=== PATIENT | male | born 1975 | race American Indian/Alaskan Native ===

== ENCOUNTER 2017-01-13 10:59 | Emergency (ER) | payer SELFPAY ==
[2017-01-13 11:05] VITALS: BP 168/105
--- NOTE | 2017-01-13 12:53 | Emergency Department Report ---
Minor Respiratory - HPI Chief Complaint: Upper Respiratory Infection Stated Complaint: FLU LIKE S/S Time Seen by Provider: 01/13/17 12:44 Duration: 4 Days Pain Location: Nose Severity: moderate Minor Respiratory: Yes Rhinorrhea, Yes Able to Tolerate Fluids, Yes Cough, Yes Sick Contacts, No Sore Throat, No Ear Pain, No Hemoptysis, No Chest Pain, No Shortness of Breath, No Fever (+chills) Other History: Pt reports cough, congestion, chills x 4 days. States feeling a little bit better today. Needs work note. ED Review of Systems ROS: Stated complaint: FLU LIKE S/S Other details as noted in HPI Comment: All other systems reviewed and negative Constitutional: chills. denies: fever Eyes: denies: eye pain, eye discharge, vision change ENT: congestion. denies: ear pain, throat pain Respiratory: cough. denies: shortness of breath, wheezing Cardiovascular: denies: chest pain, palpitations Endocrine: no symptoms reported Gastrointestinal: denies: abdominal pain, nausea, diarrhea Genitourinary: denies: urgency, dysuria Musculoskeletal: denies: back pain, joint swelling, arthralgia Skin: denies: rash, lesions Neurological: denies: headache, weakness, paresthesias Psychiatric: denies: anxiety, depression Hematological/Lymphatic: denies: easy bleeding, easy bruising ED Past Medical Hx - Past Medical History Hx Hypertension: Yes Hx Diabetes: Yes - Surgical History Past Surgical History?: No - Social History Smoking Status: Never Smoker Substance Use Type: None - Medications Home Medications: Home Medications Medication Instructions Recorded Confirmed Last Taken Type Azithromycin [Zithromax] 250 mg PO DAILY #6 tablet 01/13/17 Unknown Rx Minor Respiratory Exam - Exam General: Vital signs noted. No distress. Alert and acting appropriately. HEENT: Yes Moist Mucous Membranes, No Pharyngeal Erythema, No Pharyngeal Exudates, No Rhinorrhea, No Conjuctival Injection, No Frontal Tenderness, No Maxillary Tenderness Ear: Neither TM Bulge, Neither TM Erythema, Neither EAC Pain, Neither EAC Discharge Neck: Yes Supple, No Adenopathy Lungs: Yes Good Air Exchange, No Wheezes, No Ronchi, No Stridor, No Cough, No Labored Respirations, No Retractions, No Use of Accessory Muscles, No Other Abnormal Lung Sounds Heart: Yes Regular, No Murmur Abdomen: Yes Normal Bowel Sounds, No Tenderness, No Peritoneal Signs Skin: No Rash, No Edema Neurologic: Alert and oriented, no deficits. Musculoskeletal: Unremarkable. ED Course Vital Signs 01/13/17 11:03 Temperature 98.1 F Pulse Rate 80 Respiratory 20 Rate Blood Pressure 168/105 O2 Sat by Pulse 98 Oximetry - Reevaluation(s) Reevaluation #1: 01/13/17 12:50 Pt is in NAD and stable for d/c. ED Medical Decision Making - Medical Decision Making Pt with flu like sx, afebrile. Will give RX for abx if not better in 3 days. Follow with PCP for HTN. - Differential Diagnosis URI, influenza, PNA Critical care attestation.: If time is entered above; I have spent that time in minutes in the direct care of this critically ill patient, excluding procedure time. ED Disposition Clinical Impression: Elevated blood pressure reading URI (upper respiratory infection) Qualifiers: URI type: unspecified URI Qualified Code(s): J06.9 - Acute upper respiratory infection, unspecified Disposition: - TO HOME OR SELFCARE Is pt being admited?: No Condition: Good Instructions: Upper Respiratory Infection (ED) Prescriptions: Azithromycin [Zithromax] 250 mg PO DAILY #6 tablet Referrals: PRIMARY CARE, [Primary Care Provider] - 3-5 Days Forms: Work/School Release Form(ED) Time of Disposition: 12:52
== END 2017-01-13 14:43 | disposition home or self-care (01) ==
LOC: ED 10:59
DX: J06.9 Acute upper respiratory infection, unspecified (principal); I10 Essential (primary) hypertension; E11.9 Type 2 diabetes mellitus without complications
CPT/HCPCS: 99282

== ENCOUNTER 2017-02-21 14:00 | Emergency (ER) | payer OTHER ==
--- NOTE | 2017-02-21 19:09 | Emergency Department Report ---
ED Recheck HPI - General Chief Complaint: Recheck/Abnormal Lab/Rx Stated Complaint: MEDICATION REFILL Time Seen by Provider: 02/21/17 18:57 Source: patient Mode of arrival: Ambulatory Limitations: No Limitations - History of Present Illness Initial Comments: This is a 41 y.o. male requesting refill of high blood pressure medicine. He use [facility] for primary care and they are closed until February 28. He took is last pill today at 1600. He has an appointment on March 13. Patient states he was taking another medication as well to better control blood pressure. Medication was discontinued because he believe it caused nightmares. He doesn't recall the name of medication. He is currently taking metoprolol 50 mg po BID. Denies chest pain, SOB, headache, pedal edema, or visual changes. MD Complaint: medication refill request -: This evening (he took the last pill at 1600) Returns Today for: request for prescription Symptoms Since Prior Visit: no new symptoms Context: ran out of medication Associated Symptoms: none. denies: fever, chills, chest pain, shortness of breath, rash, malaise, nasuea, abdominal pain - Related Data Home Medications Medication Instructions Recorded Confirmed Last Taken Metformin HCl 1,000 mg PO DAILY 02/21/17 02/21/17 02/21/17 Previous Rx's Medication Instructions Recorded Last Taken Type Azithromycin [Zithromax] 250 mg PO DAILY #6 tablet 01/13/17 Unknown Rx Metoprolol Tartrate 50 mg PO BID 30 Days #30 tablet 02/21/17 Unknown Rx Allergies Allergy/AdvReac Type Severity Reaction Status Date / Time No Known Allergies Allergy Unverified 01/13/17 11:03 ED Review of Systems ROS: Stated complaint: MEDICATION REFILL Other details as noted in HPI Constitutional: no symptoms reported, see HPI. denies: chills, diaphoresis, fever, malaise, weakness Respiratory: no symptoms reported, see HPI. denies: cough, orthopnea, shortness of breath, SOB with exertion, SOB at rest, stridor, wheezing Cardiovascular: as per HPI. denies: chest pain, palpitations, dyspnea on exertion, orthopnea, edema, syncope, paroxysmal nocturnal dyspnea Gastrointestinal: as per HPI. denies: abdominal pain, nausea, vomiting, diarrhea, constipation, hematemesis, melena, hematochezia Neurological: as per HPI. denies: headache, weakness, numbness, paresthesias, confusion, abnormal gait, vertigo Psychiatric: as per HPI. denies: anxiety, depression, auditory hallucinations, visual hallucinations, homicidal thoughts, suicidal thoughts ED Past Medical Hx - Past Medical History Hx Hypertension: Yes Hx Diabetes: Yes - Social History Smoking Status: Never Smoker Substance Use Type: None - Medications Home Medications: Home Medications Medication Instructions Recorded Confirmed Last Taken Type Azithromycin [Zithromax] 250 mg PO DAILY #6 tablet 01/13/17 Unknown Rx Metformin HCl 1,000 mg PO DAILY 02/21/17 02/21/17 02/21/17 History Metoprolol Tartrate 50 mg PO BID 30 Days #30 tablet 02/21/17 Unknown Rx ED Physical Exam - General Limitations: No Limitations General appearance: alert, in no apparent distress - Respiratory Respiratory exam: Present: normal lung sounds bilaterally. Absent: respiratory distress, wheezes, rales, rhonchi, stridor, chest wall tenderness, accessory muscle use, decreased breath sounds, prolonged expiratory - Cardiovascular Cardiovascular Exam: Present: regular rate, normal rhythm, normal heart sounds. Absent: bradycardia, tachycardia, irregular rhythm, systolic murmur, diastolic murmur, rubs, gallop, clicks, JVD, S3, S4 - GI/Abdominal GI/Abdominal exam: Present: soft, normal bowel sounds. Absent: distended, tenderness, guarding, rebound, rigid, diminished bowel sounds, hyperactive bowel sounds, hypoactive bowel sounds, organomegaly, mass, bruit, pulsatile mass , hernia - Extremities Exam Extremities exam: Present: normal inspection, full ROM, normal capillary refill. Absent: tenderness, pedal edema, joint swelling, calf tenderness - Neurological Exam Neurological exam: Present: alert, oriented X3, CN II-XII intact, normal gait, reflexes normal. Absent: altered, abnormal gait, motor sensory deficit - Psychiatric Psychiatric exam: Present: normal affect, normal mood. Absent: depressed, agitated, anxious, flat affect, manic, homicidal ideation, suicidal ideation - Skin Skin exam: Present: warm, dry, intact, normal color. Absent: rash, cyanosis, diaphoretic, erythema, urticaria, vesicles, petechiae, pallor, abrasion, ecchymosis ED Course Vital Signs 02/21/17 02/21/17 14:40 20:51 Temperature 98.5 F 98.6 F Pulse Rate 93 H 85 Respiratory 14 18 Rate Blood Pressure 166/103 Blood Pressure 187/105 [Right] O2 Sat by Pulse 97 97 Oximetry ED Recheck MDM - Medical Decision Making 41 y.o. male, presents for BP med refills. Currently taking metoprolol 50 mg po BID. He was taking something else, unsure of name. He is discontinued medicine because it was causing nightmares. He took the last pill today at 1600, which was second dose. BP 166/103 on arrival. Given Hydralazine 20 mg IV x 1. Trending down, rechecked 164/97. Has appointment with PCP at [facility] . Clinic is closed until 02/28/2017. Critical care attestation.: If time is entered above; I have spent that time in minutes in the direct care of this critically ill patient, excluding procedure time. ED Disposition Clinical Impression: UTI (urinary tract infection) Qualifiers: Urinary tract infection type: acute cystitis Hematuria presence: with hematuria Qualified Code(s): N30.01 - Acute cystitis with hematuria Disposition: DC-01 TO HOME OR SELFCARE Is pt being admited?: No Does the pt Need Aspirin: No Condition: Stable Instructions: Urinary Tract Infection in Women (ED), Dysuria (ED) Additional Instructions: Low sodium diet. Follow up with Primary Care Provider. Prescriptions: Metoprolol Tartrate 50 mg PO BID 30 Days #30 tablet Referrals: PRIMARY CARE [Primary Care Provider] - 3-5 Days [facility] [Outside] - 3-[address] [facility] [Outside] - 3-5 Days Forms: Work/School Release Form(ED) Time of Disposition: 21:41 Print Language: YORUBA
[2017-02-21] MEDS ORDERED: APRESOLINE IV ONE (20:52)
[2017-02-21 21:30] VITALS: BP 164/97
== END 2017-02-21 21:48 | disposition home or self-care (01) ==
LOC: ED 14:00
DX: N30.01 Acute cystitis with hematuria (principal); I10 Essential (primary) hypertension; E11.9 Type 2 diabetes mellitus without complications
CPT/HCPCS: 96374; 99282; J0360

== ENCOUNTER 2020-03-02 15:17 | Emergency (ER) | payer SELFPAY ==
--- NOTE | 2020-03-02 17:48 | Emergency Department Report ---
Stated Complaint: OUT OF MEDS Time Seen by Provider: 03/02/20 17:41 - HPI History of Present Illness: Patient presents for medication refill today. He has history of hypertension diabetes and is needing refills of his metoprolol and Metformin. Patient states he has been out of his meds for 1 week. He does not currently have BP due to not having insurance. He denies any chest pain, shortness of breath, headache, dizziness, vision changes, skin lesions, fever/chills/sweats, or other concerns. He states he is feeling well. He states his home blood glucose is around 300. Patient's blood pressure elevated today, given this will refill his meds. Discussed importance of follow-up with a primary care provider for management of his blood pressure and diabetes. Patient provided with community resource list for primary care provider. Discussed signs and symptoms that should prompt imme diate return to the emergency department detail patient verbalized understanding. He is well-appearing and stable for discharge home. MSE screening note: Focused history and physical exam performed. Due to findings the following was ordered: ED Disposition for MSE Clinical Impression: Medication refill Disposition: MED SCREENING EXAM-LEFT Is pt being admited?: No Condition: Stable Instructions: Diabetes Mellitus and Nutrition, Adult, Diabetes Mellitus and Exercise Additional Instructions: Please follow-up with one of the health clinics provided within 3 days for further evaluation and treatment of your diabetes and hypertension. Prescriptions: metFORMIN [Glucophage] 500 mg PO BID 30 Days #60 tablet Metoprolol [Lopressor TAB] 50 mg PO BID 30 Days #60 tablet ED Physical Exam - General Limitations: No Limitations General appearance: alert, in no apparent distress - Head Head exam: Present: atraumatic, normocephalic - Eye Eye exam: Present: normal appearance - Respiratory Respiratory exam: Absent: respiratory distress - Cardiovascular Cardiovascular Exam: Present: regular rate, normal rhythm. Absent: systolic murmur, diastolic murmur, rubs, gallop - Neurological Exam Neurological exam: Present: alert, oriented X3, normal gait - Psychiatric Psychiatric exam: Present: normal affect, normal mood - Skin Skin exam: Present: warm, dry, intact, normal color. Absent: rash ED Review of Systems ROS: Stated complaint: OUT OF MEDS Other details as noted in HPI Constitutional: denies: fever, malaise Respiratory: denies: cough, shortness of breath Cardiovascular: denies: chest pain Gastrointestinal: denies: abdominal pain Skin: denies: change in color Neurological: denies: headache
[2020-03-02 18:52] VITALS: BP 144/97
== END 2020-03-02 20:44 | disposition left against medical advice (07) ==
LOC: ED 15:17
DX: Z00.8 Encounter for other general examination (principal); Z53.21 Procedure and treatment not carried out due to patient leaving prior to being seen by health care provider